=== PATIENT | female | born 1995 | race Caucasian/White ===

== ENCOUNTER 2017-10-07 07:10 | Inpatient (IN) | payer OTHER ==
[~2017-10-07] VITALS: Ht 157.5 cm; Wt 2.3 kg
[2017-10-07] MEDS ORDERED: PRENATAL TABLE1 EAC2 PO (09:35)
[2017-10-09] MEDS ORDERED: PERCOCET 5-3251 EACH PO (13:25)
[2017-10-09] MEDS ORDERED: SURFAK240 M1 PO (13:25)
== END 2017-10-09 15:46 | disposition home or self-care (01) | DRG 766 ==
LOC: LDR 07:10 → O/R 12:48 → OB/GYN 14:47
PROVIDERS: Specialist
PROC: 4A033R1 Measurement of Arterial Saturation, Peripheral, Percutaneous Approach (ICD-10-PCS; 2017-10-07)
PROC: 4A1HXCZ Monitoring of Products of Conception, Cardiac Rate, External Approach (ICD-10-PCS; 2017-10-07)
PROC: 10D00Z1 Extraction of Products of Conception, Low, Open Approach (ICD-10-PCS; principal; 2017-10-07 12:00)
DX: O99.824 Streptococcus B carrier state complicating childbirth (principal); O24.420 Gestational diabetes mellitus in childbirth, diet controlled; Z3A.38 38 weeks gestation of pregnancy; Z37.0 Single live birth